=== PATIENT | male | born 1985 | race African-American/Black ===

== ENCOUNTER 2017-04-01 05:18 | Emergency (ER) | payer OTHER ==
[~2017-04-01] VITALS: Ht 177.8 cm; Wt 80.0 kg
[2017-04-01 05:19] VITALS: BP 159/89; PULSE 83; RESP 16; TEMP 97.8; O2SAT 98
[2017-04-01] MEDS ORDERED: BENZ100 PO (05:40)
[2017-04-01] MEDS ORDERED: FLUT1SPR5 EACH NARE (05:40)
[2017-04-01] MEDS ORDERED: PRED20 PO (05:40)
[2017-04-01] MEDS ORDERED: AUGM875T3 PO (05:40)
[2017-04-01] MEDS ORDERED: ALBUAER3 INH (05:40)
[2017-04-01] MEDS ORDERED: AMOXICILLIN/CLAVULANATE K 875 MG TAB PO ONE (05:45)
[2017-04-01] MEDS ORDERED: RESP: ALBUTEROL 2.5 MG/IPRATROPIUM 0.5 MG NEB (SCH) INH ONE (05:45)
[2017-04-01] MEDS ORDERED: predniSONE 20 MG TAB PO ONE (05:45)
[2017-04-01] MEDS ORDERED: PSEUDOEPHEDRINE HCL 30 MG TAB PO ONE (05:45)
[2017-04-01] MEDS ORDERED: BENZONATATE 100 MG CAP PO ONE (05:45)
[2017-04-01] MEDS ORDERED: FLUTICASONE PROPIONATE 50 MCG/ACT 16 GM NASAL SPRAY NASAL ONE (05:45)
--- NOTE | 2017-04-01 05:46 | PD ---
HPI Chief Complaint: ENT Complaint Time Seen by Provider: 05:38 Travel History International Travel<30 days: No Contact w/Intl Traveler<30days: No Traveled to known affect area: No History of Present Illness HPI This is a 31-year-old male who reports a history of childhood asthma. He presents for evaluation. For the past week he has had cough, congestion, myalgias. His had similar symptoms recently as well. Yesterday evening he started developing left ear pain which has gradually intensified throughout the night. Describes it as a pressure which is constant but worse when he is leaning his head to the left. Denies any drainage from the ear. Denies any recent airplane travel, recent swimming. No other complaints. PFSH Past Medical History Asthma: Yes Diminished Hearing: No Immunizations Current: Yes Tetanus Vaccination: Unknown Influenza Vaccination: No Social History Alcohol Use: Yes (occas) Tobacco Use: No (STOPPED 3 WEEKS AGO) Substance Use: No Allergies-Medications (Allergen,Severity, Reaction): Coded Allergies: No Known Allergies (Verified Adverse Reaction, Unknown, 04/01/17) Reported Meds & Prescriptions Reported Meds & Active Scripts Active Proair Hfa 8.5 GM Inh (Albuterol Sulfate) 90 Mcg/Act Aer 2 Puff INH Q4-6H PRN 108 mcg/actuation Prednisone 20 Mg Tab 20 Mg PO BID 5 Days Tessalon Perles (Benzonatate) 100 Mg Cap 200 Mg PO TID PRN Flonase Nasal [place] (Fluticasone Nasal [place]) 50 Mcg/Act [place] 100 Mcg EACH NARE BID 10 Days Augmentin (Amoxicillin-Clavulanate) 875-125 Mg Tab 1 Tab PO BID 10 Days Review of Systems Except as stated in HPI: all other systems reviewed are Neg Physical Exam Narrative GENERAL: Well-developed well-nourished male in no acute distress SKIN: Warm and dry. HEAD: Atraumatic. Normocephalic. EYES: Pupils equal and round. No scleral icterus. No injection or drainage. ENT: No nasal bleeding or discharge. Mucous membranes pink and moist. The left tympanic membrane has significant bulging with obscuration of the anatomical landmarks. The right tympanic membrane by contrast appears normal with mild air-fluid levels present. NECK: Trachea midline. No JVD. No lymphadenopathy CARDIOVASCULAR: Regular rate and rhythm. No murmur appreciated. RESPIRATORY: No accessory muscle use. Scattered wheezing bilaterally. Breath sounds equal bilaterally. Data Data Last Documented VS Vital Signs Date Time Temp Pulse Resp B/P (MAP) Pulse Ox O2 Delivery O2 Flow Rate FiO2 04/01/17 05:19 97.8 83 16 159/89 (112) 98 Room Air Orders Orders Fluticasone Antonio Spr (Flonase Antonio Spr) (04/01/17 05:45) Pseudoephedrine (Sudafed) (04/01/17 05:45) Amoxicil-Clavulanate (Augmentin) (04/01/17 05:45) Benzonatate (Tessalon) (04/01/17 05:45) Prednisone (Deltasone) (04/01/17 05:45) Albuterol-Ipratropium Neb (Duoneb Neb) (04/01/17 05:45) Ed Discharge Order (04/01/17 05:38) MDM Medical Decision Making Medical Screen Exam Complete: Yes Emergency Medical Condition: Yes Medical Record Reviewed: Yes Differential Diagnosis Sinusitis, bronchitis, asthma, reactive airway disease, otitis media, eustachian tube dysfunction, perforated tympanic membrane Narrative Course 31-year-old male with cold symptoms for one week now with 1 day of left ear pain. On examination he has scattered wheezing bilaterally as well as significant left-sided otitis media with no perforation at this time however there is a risk of rupture. The patient will be started on Augmentin, Flonase, Tessalon, as well as prednisone and albuterol for his wheezing. He will be given the first dose of these medications tonight as well as Sudafed. Recommended that if spontaneous rupture curse that he should avoid getting water into the left ear canal and that he should follow up with his primary care physician in 2-4 weeks so the tympanic membrane can be reassessed. Diagnosis Primary Impression: Otitis media Qualified Codes: H66.002 - Acute suppurative otitis media without spontaneous rupture of ear drum, left ear Additional Impression: Bronchitis Departure Forms: Tests/Procedures, Work Release Enter return to work date: Apr 05, 2017 Additional Instructions: Medication as prescribed. Use [id number] nasal decongestants. As discussed, the left tympanic membrane may rupture given the pressure behind it. If this occurs, symptoms would include decrease in your left ear pain, ringing in your ear, drainage from the left ear. If this occurs, bleeding water into the left ear canal and follow up with her primary care physician in 2 -4 weeks for recheck. Med/Other Pt SpecificInfo: Prescription(s) given Scripts Albuterol 8.5 GM Inh (Proair Hfa 8.5 GM Inh) 90 Mcg/Act Aer 2 PUFF INH Q4-6H Y for SHORTNESS OF BREATH, #1 INHALER 0 Refills 108 mcg/actuation Prov: Yayo Nath MD 04/01/17 Prednisone (Prednisone) 20 Mg Tab 20 MG PO BID for 5 Days, #10 TAB 0 Refills Prov: Yayo Nath MD 04/01/17 Benzonatate (Tessalon Perles) 100 Mg Cap 200 MG PO TID Y for COUGH, #30 CAP 0 Refills Prov: Yayo Nath MD 04/01/17 Fluticasone Nasal [place] (Flonase Nasal [place]) 50 Mcg/Act [place] 100 MCG EACH NARE BID for CONGESTION for 10 Days, #1 BOTTLE 0 Refills Prov: Yayo Nath MD 04/01/17 Amoxicillin-Clavulanate (Augmentin) 875-125 Mg Tab 1 TAB PO BID for Infection for 10 Days, #20 TAB 0 Refills Prov: Yayo Nath MD 04/01/17 Disposition: 01 DISCHARGE HOME Condition: Stable Donaldo Rapp Apr 01, 2017 05:46
== END 2017-04-01 06:42 | disposition home or self-care (01) ==
LOC: NEPD 05:18
DX: H66.002 Acute suppurative otitis media without spontaneous rupture of ear drum, left ear (principal); J45.909 Unspecified asthma, uncomplicated; M79.1 Myalgia; Z87.891 Personal history of nicotine dependence
CPT/HCPCS: 94664; 99284; J7512